=== PATIENT | male | born 1935 | race Two or more races ===

== ENCOUNTER 2016-04-20 22:19 | Inpatient (IN) | payer MEDICAID, MEDICARE ==
[~2016-04-20] VITALS: Ht 165.1 cm; Wt 64.4 kg
[~2016-04-20 22:19] MED LIST: ASPI-605 PO; GLIP10TA11 PO; LOSA50TA21 PO; MELO-264 PO
[2016-04-20] MEDS ORDERED: LEVOFLOXACIN 750 MG /D5W 150ML 150 ML IV ONE ×2 (22:30→22:43)
[2016-04-20] MEDS ORDERED: ACETAMINOPHEN 650 MG/SUPP.RECT RC ONE ×2 (22:30→22:42)
[2016-04-20] MEDS ORDERED: IV NS 0.9% 1,000 ML BAG IV ONE (22:30)
[2016-04-20 22:43] LABS: ABG HCO3 24.4 mmol/L; ABG PCO2 38.6 mmHg (35.0-45.0); ABG PH 7.419 (7.350-7.450); ABG PO2 75.4 mmHg (75.0-100.0); ABG TOTAL HEMOGLOBIN 10.2 G/dL (13.5-18.0); O2Hb 93.3 % (94.0-97.0)
[2016-04-20] MEDS ORDERED: IV SET PRIMARY PUMP SET 1 EA INFUS.SET MC ONE (22:43)
[2016-04-20] MEDS ORDERED: SECONDARY IV SET 1 EA INFUS.SET MC ONE (22:43)
[2016-04-20] MEDS ORDERED: IV SET PRIMARY 1 EA INFUS.SET MC ONE (22:43)
[2016-04-20] MEDS ORDERED: IV NS 0.9% 2,000 ML ONE (22:43)
[2016-04-20 22:51] LABS: BASOPHILS % (AUTO) 0.1 % (0.0-2.0); DIFF TOTAL % 100 %; HEMATOCRIT 30 % (39-51); HEMOGLOBIN 9.3 g/dL (13.5-17.5); LYMPHOCYTES % (AUTO) 10.4 % (20.0-44.0); MEAN CORPUSCULAR HEMOGLOBIN 31 PG (26.0-33.0); MEAN CORPUSCULAR HGB CONC 31 g/dl (31.0-36.0); MEAN CORPUSCULAR VOLUME 99 fL (80-96); MONOCYTES # (AUTO) 0.5 /CMM (0.1-1.30); MONOCYTES % (AUTO) 2.5 % (2.0-12.0); NEUTROPHILS # (AUTO) 16.7 /CMM (1.8-8.9); PLATELET COUNT (AUTO) 298 /CMM (150-450); RED BLOOD CELL COUNT(AUTO) 2.99 MIL/uL (4.5-6.0); WHITE BLOOD COUNT (AUTO) 19.1 K/uL (4.3-11.0)
[2016-04-20 23:06] LABS: TROPONIN I 0.093 ng/mL (0.00-0.056)
[2016-04-20 23:08] LABS: CALCIUM, SERUM 8.9 mg/dL (8.5-10.1); CREATININE 1.3 mg/dL (0.6-1.3); POTASSIUM 3.7 mmol/L (3.5-5.1)
[2016-04-20 23:09] LABS: LACTIC ACID 1.8 mmol/L (0.4-2.0)
[2016-04-20 23:25] LABS: INR 1.02 (0.87-1.13)
[2016-04-20 23:25] LABS: ADD UA MICROSCOPIC YES; KETONES,URINE NEGATIVE (NEGATIVE); LEUKOCYTE ESTERASE ,URINE 1+ (NEGATIVE); PH,URINE 7.5 (5.0-8.0)
[2016-04-20 23:26] LABS: ADD URINE CULTURE YES; RBC,URINE 0-2 /HPF (0-2)
[2016-04-20 23:26] LABS: ALBUMIN 2.5 g/dL (3.4-5.0); BILIRUBIN,DIRECT 0.1 mg/dL (0.0-0.2); BILIRUBIN,TOTAL 0.4 mg/dL (0.2-1.0); INDIRECT BILIRUBIN 0.3 mg/dL (0.0-1.1); TOTAL PROTEIN, SERUM 7.9 g/dL (6.4-8.2)
[2016-04-21] VITALS (41 sets, daily range): BP systolic 85–133; BP diastolic 43–82
[2016-04-21] MEDS ORDERED: VANCOMYCIN 1 GM in IV D5W 250 ML IV ONE ×2
[2016-04-21] MEDS ORDERED: PIPERACILLIN /TAZOBACTAM 3.375 G in IV D5W 50 ML IV ONE ×2
[2016-04-21] MEDS ORDERED: IV SET PRIMARY 1 EA INFUS.SET MC ONE (00:09)
[2016-04-21] MEDS ORDERED: IV NS 0.9% 1,000 ML ONE (00:09)
[2016-04-21] MEDS ORDERED: VANCOMYCIN 1 GM VIAL ONE (00:22)
[2016-04-21] MEDS ORDERED: PIPERACILLIN /TAZOBACTAM 3.375 G VIAL IV ONE ×2 (00:22→05:00)
[2016-04-21] MEDS ORDERED: IV D5W 50 ML IV ONE (00:23)
[2016-04-21] MEDS ORDERED: IV D5W 250 ML IV ONE (00:23)
[2016-04-21] MEDS ORDERED: IV SET PRIMARY PUMP SET 1 EA INFUS.SET MC ONE ×5 (00:24→19:25)
[2016-04-21] MEDS ORDERED: ASPIRIN 81 MG TAB.CHEW ONE (00:51)
[2016-04-21] MEDS ORDERED: IV D5W 1,000 ML IV PRN (00:56)
[2016-04-21] MEDS ORDERED: HYDROCODONE/APAP 5/325MG 1 EACH TABLET PO PRN (01:00)
[2016-04-21] MEDS ORDERED: ACETAMINOPHEN 325 MG TABLET PO PRN (01:00)
[2016-04-21] MEDS ORDERED: BLOOD SUGAR DIAGNOSTIC 1 EACH STRIP IN SCH (01:00)
[2016-04-21] MEDS ORDERED: Z GUARD REMEDY 2 OZ OINT TP PRN (01:00)
[2016-04-21] MEDS ORDERED: ASPIRIN 325 MG TABLET PO ONE (01:00)
[2016-04-21] MEDS ORDERED: ONDANSETRON HCL/PF 4 MG/2 ML VIAL IVP PRN (01:00)
[2016-04-21] MEDS ORDERED: LEVOFLOXACIN 500 MG /D5W 100ML 100 ML IV SCH (01:00)
[2016-04-21] MEDS ORDERED: DEXTROSE 50%-WATER 50 ML DISP.SYRIN IV PRN (01:00)
[2016-04-21] MEDS ORDERED: ZOLPIDEM TARTRATE 5 MG TABLET PO PRN (01:00)
[2016-04-21] MEDS ORDERED: INSULIN REGULAR, HUMAN 100 UNIT/ML 3 ML VIAL SQ PRN (01:00)
[2016-04-21] MEDS ORDERED: MAG HYDROX/AL HYDROX/SIMETH 30 ML UDC PO PRN (01:00)
[2016-04-21] MEDS ORDERED: MAGNESIUM HYDROXIDE 30 ML UDC PO PRN (01:00)
[2016-04-21] MEDS ORDERED: ENOXAPARIN SODIUM 40 MG/0.4 ML DISP.SYRIN SQ SCH (01:00)
[2016-04-21] MEDS ORDERED: IV D5W 1,000 ML IV ONE ×2 (02:27→23:43)
[2016-04-21] MEDS ORDERED: INSULIN REGULAR, HUMAN 100 UNIT/ML 10 ML VIAL ONE (02:28)
[2016-04-21] MEDS ORDERED: IV NS 0.9% 100 ML IV ONE (02:37)
[2016-04-21] MEDS: INSULIN REGULAR, HUMAN 100 UNIT in IV NS 0.9% 99 ML IV PRN ×6 (02:49→10:29)
[2016-04-21] MEDS ORDERED: ENOXAPARIN SODIUM 40 MG/0.4 ML DISP.SYRIN SQ ONE (02:50)
[2016-04-21] MEDS: BLOOD SUGAR DIAGNOSTIC 1 EACH STRIP IN SCH ×23 (02:51→23:56)
[2016-04-21] MEDS ORDERED: PIPERACILLIN /TAZOBACTAM 3.375 G in IV D5W 100 ML IV SCH (05:00)
[2016-04-21] MEDS ORDERED: SECONDARY IV SET 1 EA INFUS.SET MC ONE (05:01)
[2016-04-21] MEDS ORDERED: IV D5W 100 ML IV ONE (05:01)
[2016-04-21 07:24] LABS: DIFF TOTAL % 100 %; EOSINOPHILS % (AUTO) 0.1 % (0.0-6.0); HEMATOCRIT 26 % (39-51); HEMOGLOBIN 8.4 g/dL (13.5-17.5); LYMPHOCYTES # (AUTO) 1.7 /CMM (0.8-4.8); LYMPHOCYTES % (AUTO) 9.4 % (20.0-44.0); MEAN CORPUSCULAR HEMOGLOBIN 32 PG (26.0-33.0); MEAN CORPUSCULAR HGB CONC 32 g/dl (31.0-36.0); MEAN CORPUSCULAR VOLUME 99 fL (80-96); MONOCYTES # (AUTO) 0.3 /CMM (0.1-1.30); MONOCYTES % (AUTO) 1.5 % (2.0-12.0); NEUTROPHILS # (AUTO) 15.6 /CMM (1.8-8.9); PLATELET COUNT (AUTO) 227 /CMM (150-450); RED BLOOD CELL COUNT(AUTO) 2.63 MIL/uL (4.5-6.0); WHITE BLOOD COUNT (AUTO) 17.5 K/uL (4.3-11.0)
[2016-04-21 07:58] LABS: BILIRUBIN,TOTAL 0.2 mg/dL (0.2-1.0); CALCIUM, SERUM 7.7 mg/dL (8.5-10.1); CREATININE 1.2 mg/dL (0.6-1.3); PHOSPHORUS 2.3 mg/dL (2.5-4.9); TOTAL PROTEIN, SERUM 6.5 g/dL (6.4-8.2)
[2016-04-21 08:02] LABS: POTASSIUM 2.4 mmol/L (3.5-5.1)
[2016-04-21] MEDS ORDERED: IV NS 0.9% 2,000 ML ONE (08:48)
[2016-04-21] MEDS ORDERED: IV NS 0.9% 1,000 ML BAG IV PRN (09:00)
[2016-04-21] MEDS ORDERED: IV NS 0.9% 1,000 ML BAG IV ONE ×2 (09:00)
[2016-04-21] MEDS ORDERED: LOSARTAN POTASSIUM 50 MG TABLET PO SCH (09:00)
[2016-04-21] MEDS ORDERED: glipiZIDE 10 MG TABLET PO SCH (09:00)
[2016-04-21] MEDS ORDERED: HYDROGEL DRESSING 90 GM TUBE TP PRN (09:30)
[2016-04-21] MEDS ORDERED: FEE PK DOSING 1 MIN EA MC ONE (09:32)
[2016-04-21] MEDS: PANTOPRAZOLE 40 MG VIAL IV SCH (09:47)
[2016-04-21] MEDS: ASPIRIN EC 81 MG TABLET.DR PO SCH (09:47)
[2016-04-21] MEDS: HYDROGEL DRESSING 90 GM TUBE TP SCH (09:48)
[2016-04-21] MEDS: POTASSIUM CL. PREMIX PERIPHER. 50 ML IV SCH ×8 (09:48→17:38)
[2016-04-21 10:41] LABS: PLATELET ESTIMATE ADEQUATE
[2016-04-21 10:42] LABS: LYMPHOCYTES % (MANUAL) 13 % (16-48)
[2016-04-21] MEDS: PIPERACILLIN /TAZOBACTAM 3.375 G in IV D5W 50 ML IV SCH ×2 (12:15→17:41)
[2016-04-21] MEDS: VANCOMYCIN 0.75 GM in IV D5W 250 ML IV SCH ×2 (12:16→23:59)
[2016-04-21 12:41] LABS: DIFF TOTAL % 100 %; EOSINOPHILS % (AUTO) 0.2 % (0.0-6.0); HEMATOCRIT 24 % (39-51); HEMOGLOBIN 7.8 g/dL (13.5-17.5); LYMPHOCYTES # (AUTO) 1.5 /CMM (0.8-4.8); LYMPHOCYTES % (AUTO) 8.7 % (20.0-44.0); MEAN CORPUSCULAR HEMOGLOBIN 32 PG (26.0-33.0); MEAN CORPUSCULAR HGB CONC 32 g/dl (31.0-36.0); MEAN CORPUSCULAR VOLUME 98 fL (80-96); MONOCYTES # (AUTO) 0.3 /CMM (0.1-1.30); MONOCYTES % (AUTO) 1.5 % (2.0-12.0); NEUTROPHILS # (AUTO) 15.4 /CMM (1.8-8.9); NEUTROPHILS % (AUTO) 89.6 % (43.0-81.0); PLATELET COUNT (AUTO) 223 /CMM (150-450); RED BLOOD CELL COUNT(AUTO) 2.48 MIL/uL (4.5-6.0); WHITE BLOOD COUNT (AUTO) 17.2 K/uL (4.3-11.0)
[2016-04-21 12:59] LABS: BILIRUBIN,TOTAL 0.2 mg/dL (0.2-1.0); CALCIUM, SERUM 7.6 mg/dL (8.5-10.1); CREATININE 0.8 mg/dL (0.6-1.3); PHOSPHORUS 2.3 mg/dL (2.5-4.9); TOTAL PROTEIN, SERUM 6.3 g/dL (6.4-8.2)
[2016-04-21 13:13] LABS: POTASSIUM 2.8 mmol/L (3.5-5.1)
[2016-04-21] MEDS ORDERED: IV D5W 1,000 ML IV SCH (13:30)
[2016-04-21] MEDS ORDERED: IV D5/0.45 NACL 1,000 ML IV PRN (14:00)
[2016-04-21 14:26] LABS: ANISOCYTOSIS 1+; BAND % (MANUAL) 4 % (0.0-5.0); HYPOCHROMASIA 1+; LYMPHOCYTES % (MANUAL) 12 % (16-48); PLATELET ESTIMATE ADEQUATE
[2016-04-21 17:28] LABS: CALCIUM, SERUM 7.3 mg/dL (8.5-10.1); CREATININE 0.9 mg/dL (0.6-1.3); POTASSIUM 3.4 mmol/L (3.5-5.1)
[2016-04-21] MEDS: POTASSIUM PHOSPHATE MM 7.5 MMOL in IV D5W 100 ML IV SCH ×2 (17:39→19:58)
[2016-04-21] MEDS ORDERED: IV NS 0.9% 500 ML IV ONE ×2 (18:45→19:00)
[2016-04-21] MEDS ORDERED: NOREPINEPHRINE 8 MG in IV D5W 500 ML IV PRN (19:00)
[2016-04-21 20:03] LABS: KETONES,URINE NEGATIVE (NEGATIVE); LEUKOCYTE ESTERASE ,URINE 1+ (NEGATIVE)
[2016-04-21 20:12] LABS: ADD UA MICROSCOPIC YES; CREATININE, URINE 43.3 MG/DL (30.0-125.0); URINE TOTAL PROTEIN 62.3 mg/dL (0-11.9)
[2016-04-21 20:13] LABS: ALBUMIN 1.7 g/dL (3.4-5.0); BILIRUBIN,TOTAL 0.2 mg/dL (0.2-1.0); CALCIUM, SERUM 7.1 mg/dL (8.5-10.1); CREATININE 0.8 mg/dL (0.6-1.3); POTASSIUM 3.4 mmol/L (3.5-5.1); TOTAL PROTEIN, SERUM 5.5 g/dL (6.4-8.2)
[2016-04-21 20:17] LABS: ADD URINE CULTURE YES
[2016-04-21 20:19] LABS: LACTIC ACID 1.9 mmol/L (0.4-2.0)
[2016-04-21 20:23] LABS: INDIRECT BILIRUBIN 0.2 mg/dL (0.0-1.1)
[2016-04-21] MEDS ORDERED: LEVOFLOXACIN 250 MG /D5W 50 ML 250 MG in PREMIX 1 EA IV SCH (22:00)
[2016-04-21] MEDS: ENOXAPARIN SODIUM 40 MG/0.4 ML DISP.SYRIN SQ SCH (22:27)
[2016-04-21] MEDS: MEROPENEM 500 MG in IV NS 0.9% 50 ML IV SCH (22:31)
[2016-04-21] MEDS: IV D5W 1,000 ML IV PRN (23:48)
[2016-04-22] VITALS (90 sets, daily range): BP systolic 77–132; BP diastolic 36–73
[2016-04-22] MEDS ORDERED: DEXTROSE 50%-WATER 50 ML DISP.SYRIN IV PRN
[2016-04-22] MEDS: BLOOD SUGAR DIAGNOSTIC 1 EACH STRIP IN SCH ×6 (00:03→21:01)
[2016-04-22] MEDS ORDERED: INSULIN REGULAR, HUMAN 100 UNIT/ML 10 ML VIAL ONE (00:15)
[2016-04-22] MEDS: INSULIN REGULAR, HUMAN 100 UNIT/ML 3 ML VIAL SQ PRN ×6 (00:23→21:04)
[2016-04-22 01:53] LABS: CALCIUM, SERUM 7.3 mg/dL (8.5-10.1); CREATININE 0.8 mg/dL (0.6-1.3)
[2016-04-22 02:04] LABS: POTASSIUM 2.8 mmol/L (3.5-5.1)
[2016-04-22] MEDS ORDERED: IV SET PRIMARY PUMP SET 1 EA INFUS.SET MC ONE (02:54)
[2016-04-22] MEDS ORDERED: POTASSIUM CL. PREMIX PERIPHER. 200 ML ONE (02:54)
[2016-04-22] MEDS: POTASSIUM CL. PREMIX PERIPHER. 50 ML IV SCH ×9 (03:20→11:55)
[2016-04-22] MEDS: MEROPENEM 500 MG in IV NS 0.9% 50 ML IV SCH ×2 (08:08→21:02)
[2016-04-22] MEDS: PANTOPRAZOLE 40 MG VIAL IV SCH (08:09)
[2016-04-22] MEDS: ASPIRIN EC 81 MG TABLET.DR PO SCH (08:09)
[2016-04-22] MEDS: IV D5W 1,000 ML IV PRN ×2 (08:13→18:42)
[2016-04-22] MEDS: HYDROGEL DRESSING 90 GM TUBE TP SCH (08:21)
[2016-04-22] MEDS: POTASSIUM PHOSPHATE MM 5 MMOL in IV D5W 100 ML IV SCH ×2 (10:01→11:56)
[2016-04-22] MEDS: VANCOMYCIN 0.75 GM in IV D5W 250 ML IV SCH ×2 (11:58→23:56)
[2016-04-22 12:39] LABS: CALCIUM, SERUM 6.9 mg/dL (8.5-10.1); CREATININE 0.7 mg/dL (0.6-1.3); POTASSIUM 3.8 mmol/L (3.5-5.1)
[2016-04-22 12:46] LABS: CHOLESTEROL 123 mg/dL (<200); CREATINE KINASE, TOTAL 119 U/L (39-308); HDL CHOLESTEROL 18 mg/dL (40-60); LDL 48 mg/dL (0-99); TRIGLYCERIDES 392 mg/dL (30-150)
[2016-04-22 12:47] LABS: SODIUM SERUM 150 mmol/L (136-145)
[2016-04-22 12:48] LABS: CARBON DIOXIDE 22 mmol/L (21-32); CHLORIDE 117 mmol/L (98-107); POTASSIUM 3.8 mmol/L (3.5-5.1)
[2016-04-22 12:49] LABS: ANION GAP 15 (5-14); GLUCOSE 290 mg/dL (74-106); UREA NITROGEN, BLOOD 12 mg/dL (7-18)
[2016-04-22 12:50] LABS: BILIRUBIN,TOTAL 0.3 mg/dL (0.2-1.0); CREATININE 0.7 mg/dL (0.6-1.3); PHOSPHORUS 2.9 mg/dL (2.5-4.9)
[2016-04-22 12:51] LABS: ALANINE AMINOTRANSFERASE 18 U/L (12-78); ALBUMIN 1.8 g/dL (3.4-5.0); ASPARTATE AMINOTRANSFERASE 20 U/L (15-37); TOTAL PROTEIN, SERUM 5.6 g/dL (6.4-8.2)
[2016-04-22 13:13] LABS: BASOPHILS % (AUTO) 0.2 % (0.0-2.0); DIFF TOTAL % 100 %; EOSINOPHILS # (AUTO) 0.1 /CMM (0.0-0.7); EOSINOPHILS % (AUTO) 0.8 % (0.0-6.0); HEMATOCRIT 25 % (39-51); LYMPHOCYTES # (AUTO) 1.7 /CMM (0.8-4.8); LYMPHOCYTES % (AUTO) 13.3 % (20.0-44.0); MEAN CORPUSCULAR HEMOGLOBIN 31 PG (26.0-33.0); MEAN CORPUSCULAR HGB CONC 32 g/dl (31.0-36.0); MEAN CORPUSCULAR VOLUME 98 fL (80-96); MONOCYTES # (AUTO) 0.3 /CMM (0.1-1.30); MONOCYTES % (AUTO) 2.4 % (2.0-12.0); NEUTROPHILS # (AUTO) 10.8 /CMM (1.8-8.9); NEUTROPHILS % (AUTO) 83.3 % (43.0-81.0); PLATELET COUNT (AUTO) 183 /CMM (150-450); RED BLOOD CELL COUNT(AUTO) 2.54 MIL/uL (4.5-6.0); WHITE BLOOD COUNT (AUTO) 12.9 K/uL (4.3-11.0)
[2016-04-22] MEDS: Magnesium 1GM/D5W 100ML PREMIX 100 ML IV SCH ×2 (15:55→17:06)
[2016-04-22 17:30] LABS: CREATININE 0.6 mg/dL (0.6-1.3); POTASSIUM 3.3 mmol/L (3.5-5.1)
[2016-04-22] MEDS: ENOXAPARIN SODIUM 40 MG/0.4 ML DISP.SYRIN SQ SCH (21:03)
[2016-04-23] VITALS (36 sets, daily range): BP systolic 81–114; BP diastolic 42–72
[2016-04-23] MEDS: BLOOD SUGAR DIAGNOSTIC 1 EACH STRIP IN SCH ×6 (00:03→20:41)
[2016-04-23] MEDS: INSULIN REGULAR, HUMAN 100 UNIT/ML 3 ML VIAL SQ PRN ×5 (00:04→20:44)
[2016-04-23] MEDS ORDERED: POTASSIUM CL. PREMIX PERIPHER. 50 ML ONE ×4 (00:09→03:33)
[2016-04-23] MEDS: POTASSIUM CL. PREMIX PERIPHER. 50 ML IV SCH ×4 (00:20→03:37)
[2016-04-23] MEDS: IV D5W 1,000 ML IV PRN (04:32)
[2016-04-23 04:53] LABS: BASOPHILS % (AUTO) 0.2 % (0.0-2.0); DIFF TOTAL % 100 %; EOSINOPHILS # (AUTO) 0.2 /CMM (0.0-0.7); EOSINOPHILS % (AUTO) 1.5 % (0.0-6.0); HEMATOCRIT 23 % (39-51); HEMOGLOBIN 7.6 g/dL (13.5-17.5); LYMPHOCYTES # (AUTO) 1.8 /CMM (0.8-4.8); LYMPHOCYTES % (AUTO) 16.8 % (20.0-44.0); MEAN CORPUSCULAR HEMOGLOBIN 32 PG (26.0-33.0); MEAN CORPUSCULAR HGB CONC 33 g/dl (31.0-36.0); MEAN CORPUSCULAR VOLUME 95 fL (80-96); MONOCYTES # (AUTO) 0.3 /CMM (0.1-1.30); NEUTROPHILS # (AUTO) 8.2 /CMM (1.8-8.9); NEUTROPHILS % (AUTO) 78.5 % (43.0-81.0); PLATELET COUNT (AUTO) 184 /CMM (150-450); RED BLOOD CELL COUNT(AUTO) 2.39 MIL/uL (4.5-6.0); WHITE BLOOD COUNT (AUTO) 10.5 K/uL (4.3-11.0)
[2016-04-23 05:08] LABS: CALCIUM, SERUM 7.1 mg/dL (8.5-10.1); CREATININE 0.6 mg/dL (0.6-1.3); PHOSPHORUS 2.1 mg/dL (2.5-4.9); POTASSIUM 3.6 mmol/L (3.5-5.1)
[2016-04-23] MEDS: PANTOPRAZOLE 40 MG VIAL IV SCH (08:43)
[2016-04-23] MEDS: ASPIRIN EC 81 MG TABLET.DR PO SCH (08:43)
[2016-04-23] MEDS: MEROPENEM 500 MG in IV NS 0.9% 50 ML IV SCH ×2 (08:44→20:41)
[2016-04-23] MEDS: HYDROGEL DRESSING 90 GM TUBE TP SCH (08:44)
[2016-04-23] MEDS: IV NS 0.9% 1,000 ML IV PRN (10:01)
[2016-04-23] MEDS: VANCOMYCIN 0.75 GM in IV D5W 250 ML IV SCH (12:56)
[2016-04-23] MEDS: GLYTROL 1,000 ML BAG GT PRN (15:00)
[2016-04-23 15:34] LABS: PTH, INTACT 43 pg/mL (15-65)
[2016-04-23] MEDS ORDERED: Sodium Phosphate 15 MMOL in IV D5W 250 ML IV ONE (17:00)
[2016-04-23] MEDS ORDERED: NEUTRA PHOS 1 POWD.PACKET GT ONE (17:00)
[2016-04-23] MEDS: ENOXAPARIN SODIUM 40 MG/0.4 ML DISP.SYRIN SQ SCH (20:42)
[2016-04-24] VITALS (7 sets, daily range): BP systolic 85–101; BP diastolic 44–55
[2016-04-24] MEDS: BLOOD SUGAR DIAGNOSTIC 1 EACH STRIP IN SCH ×6 (01:25→20:13)
[2016-04-24] MEDS ORDERED: METOCLOPRAMIDE HCL 10 MG/2 ML VIAL ONE (02:17)
[2016-04-24] MEDS: METOCLOPRAMIDE HCL 10 MG/2 ML VIAL IV SCH ×4 (02:33→20:05)
[2016-04-24] MEDS: IV NS 0.9% 1,000 ML IV PRN ×2 (02:35→20:04)
[2016-04-24] MEDS: INSULIN REGULAR, HUMAN 100 UNIT/ML 3 ML VIAL SQ PRN ×4 (05:41→20:09)
[2016-04-24 07:05] LABS: CALCIUM, SERUM 6.9 mg/dL (8.5-10.1); CREATININE 0.5 mg/dL (0.6-1.3); PHOSPHORUS 2.8 mg/dL (2.5-4.9); POTASSIUM 3.1 mmol/L (3.5-5.1)
[2016-04-24] MEDS: ASPIRIN EC 81 MG TABLET.DR PO SCH (08:52)
[2016-04-24] MEDS: PANTOPRAZOLE 40 MG VIAL IV SCH (08:52)
[2016-04-24] MEDS: HYDROGEL DRESSING 90 GM TUBE TP SCH (08:53)
[2016-04-24] MEDS: MEROPENEM 500 MG in IV NS 0.9% 50 ML IV SCH ×2 (08:54→20:05)
[2016-04-24] MEDS ORDERED: POTASSIUM CHLORIDE 20 MEQ POWDER PACKET GT ONE (12:00)
[2016-04-24] MEDS: GLYTROL 1,000 ML BAG GT PRN (20:05)
[2016-04-24] MEDS: ENOXAPARIN SODIUM 40 MG/0.4 ML DISP.SYRIN SQ SCH (20:06)
[2016-04-25] VITALS: BP 105/62
[2016-04-25] MEDS: INSULIN REGULAR, HUMAN 100 UNIT/ML 3 ML VIAL SQ PRN ×6 (00:14→21:23)
[2016-04-25] MEDS: BLOOD SUGAR DIAGNOSTIC 1 EACH STRIP IN SCH ×6 (00:14→21:22)
[2016-04-25 04:00] VITALS: BP 119/66
[2016-04-25] MEDS: METOCLOPRAMIDE HCL 10 MG/2 ML VIAL IV SCH ×3 (05:17→21:19)
[2016-04-25 07:59] LABS: CALCIUM, SERUM 7.5 mg/dL (8.5-10.1); CREATININE 0.5 mg/dL (0.6-1.3); POTASSIUM 3.1 mmol/L (3.5-5.1)
[2016-04-25 08:00] VITALS: BP 125/70
[2016-04-25] MEDS: PANTOPRAZOLE 40 MG VIAL IV SCH (08:43)
[2016-04-25] MEDS: ASPIRIN EC 81 MG TABLET.DR PO SCH (08:43)
[2016-04-25] MEDS: MEROPENEM 500 MG in IV NS 0.9% 50 ML IV SCH ×2 (08:43→21:19)
[2016-04-25] MEDS: HYDROGEL DRESSING 90 GM TUBE TP SCH (08:44)
[2016-04-25] MEDS ORDERED: POTASSIUM CHLORIDE 20 MEQ POWDER PACKET GT SCH (11:00)
[2016-04-25 12:00] VITALS: BP 110/63
[2016-04-25 16:00] VITALS: BP 101/59
[2016-04-25 20:00] VITALS: BP 115/67
[2016-04-25] MEDS: ENOXAPARIN SODIUM 40 MG/0.4 ML DISP.SYRIN SQ SCH (21:20)
[2016-04-26] VITALS: BP 118/64
[2016-04-26] MEDS: GLYTROL 1,000 ML BAG GT PRN ×2 (00:35→17:37)
[2016-04-26] MEDS: IV NS 0.9% 1,000 ML IV PRN (00:36)
[2016-04-26] MEDS: INSULIN REGULAR, HUMAN 100 UNIT/ML 3 ML VIAL SQ PRN ×6 (00:37→20:57)
[2016-04-26] MEDS: BLOOD SUGAR DIAGNOSTIC 1 EACH STRIP IN SCH ×6 (00:38→20:50)
[2016-04-26 04:00] VITALS: BP 117/64
[2016-04-26] MEDS: METOCLOPRAMIDE HCL 10 MG/2 ML VIAL IV SCH ×3 (05:17→20:52)
[2016-04-26 07:28] LABS: BASOPHILS % (AUTO) 0.2 % (0.0-2.0); DIFF TOTAL % 100 %; EOSINOPHILS # (AUTO) 0.1 /CMM (0.0-0.7); EOSINOPHILS % (AUTO) 1.6 % (0.0-6.0); HEMATOCRIT 21 % (39-51); LYMPHOCYTES # (AUTO) 1.6 /CMM (0.8-4.8); LYMPHOCYTES % (AUTO) 20.3 % (20.0-44.0); MEAN CORPUSCULAR HEMOGLOBIN 32 PG (26.0-33.0); MEAN CORPUSCULAR HGB CONC 33 g/dl (31.0-36.0); MEAN CORPUSCULAR VOLUME 96 fL (80-96); MONOCYTES # (AUTO) 0.3 /CMM (0.1-1.30); MONOCYTES % (AUTO) 3.5 % (2.0-12.0); NEUTROPHILS # (AUTO) 5.7 /CMM (1.8-8.9); NEUTROPHILS % (AUTO) 74.4 % (43.0-81.0); PLATELET COUNT (AUTO) 236 /CMM (150-450); RED BLOOD CELL COUNT(AUTO) 2.18 MIL/uL (4.5-6.0); WHITE BLOOD COUNT (AUTO) 7.7 K/uL (4.3-11.0)
[2016-04-26 07:47] LABS: CALCIUM, SERUM 7.5 mg/dL (8.5-10.1); CREATININE 0.5 mg/dL (0.6-1.3); POTASSIUM 3.5 mmol/L (3.5-5.1)
[2016-04-26 08:00] VITALS: BP 116/64
[2016-04-26] MEDS: ASPIRIN EC 81 MG TABLET.DR PO SCH (09:00)
[2016-04-26] MEDS: MEROPENEM 500 MG in IV NS 0.9% 50 ML IV SCH ×2 (09:26→20:51)
[2016-04-26] MEDS: PANTOPRAZOLE 40 MG VIAL IV SCH (09:26)
[2016-04-26] MEDS: HYDROGEL DRESSING 90 GM TUBE TP SCH (09:27)
[2016-04-26 12:00] VITALS: BP 101/59
[2016-04-26 16:00] VITALS: BP 103/56
[2016-04-26 20:00] VITALS: BP 107/53
[2016-04-26] MEDS: ENOXAPARIN SODIUM 40 MG/0.4 ML DISP.SYRIN SQ SCH (20:56)
[2016-04-27] VITALS: BP 123/68
[2016-04-27] MEDS: BLOOD SUGAR DIAGNOSTIC 1 EACH STRIP IN SCH ×6 (01:40→21:13)
[2016-04-27] MEDS: INSULIN REGULAR, HUMAN 100 UNIT/ML 3 ML VIAL SQ PRN ×5 (01:43→21:19)
[2016-04-27] MEDS: IV NS 0.9% 1,000 ML IV PRN ×2 (01:43→22:12)
[2016-04-27 04:00] VITALS: BP 121/67
[2016-04-27] MEDS: METOCLOPRAMIDE HCL 10 MG/2 ML VIAL IV SCH ×3 (05:23→21:09)
[2016-04-27 06:36] LABS: BASOPHILS % (AUTO) 0.2 % (0.0-2.0); DIFF TOTAL % 100 %; EOSINOPHILS # (AUTO) 0.1 /CMM (0.0-0.7); EOSINOPHILS % (AUTO) 1.7 % (0.0-6.0); HEMATOCRIT 22 % (39-51); HEMOGLOBIN 7.2 g/dL (13.5-17.5); LYMPHOCYTES # (AUTO) 1.6 /CMM (0.8-4.8); LYMPHOCYTES % (AUTO) 20.3 % (20.0-44.0); MEAN CORPUSCULAR HEMOGLOBIN 32 PG (26.0-33.0); MEAN CORPUSCULAR HGB CONC 33 g/dl (31.0-36.0); MEAN CORPUSCULAR VOLUME 98 fL (80-96); MONOCYTES # (AUTO) 0.4 /CMM (0.1-1.30); MONOCYTES % (AUTO) 4.8 % (2.0-12.0); NEUTROPHILS # (AUTO) 5.9 /CMM (1.8-8.9); PLATELET COUNT (AUTO) 296 /CMM (150-450); RED BLOOD CELL COUNT(AUTO) 2.25 MIL/uL (4.5-6.0); WHITE BLOOD COUNT (AUTO) 8.1 K/uL (4.3-11.0)
[2016-04-27 06:49] LABS: CALCIUM, SERUM 7.5 mg/dL (8.5-10.1); CREATININE 0.5 mg/dL (0.6-1.3); POTASSIUM 3.4 mmol/L (3.5-5.1)
[2016-04-27 08:00] VITALS: BP 126/67
[2016-04-27] MEDS: HYDROGEL DRESSING 90 GM TUBE TP SCH (08:05)
[2016-04-27] MEDS: PANTOPRAZOLE 40 MG VIAL IV SCH (08:05)
[2016-04-27] MEDS: ASPIRIN EC 81 MG TABLET.DR PO SCH (08:05)
[2016-04-27] MEDS: PROSOURCE / PROSTAT (PYXIS) 30 ML UDC GT SCH ×2 (08:05→16:09)
[2016-04-27] MEDS: MULTIVITAMIN LIQ 5 ML UDC GT SCH (08:05)
[2016-04-27] MEDS: MEROPENEM 500 MG in IV NS 0.9% 50 ML IV SCH ×2 (08:05→21:09)
[2016-04-27] MEDS: ASCORBIC ACID 500 MG TABLET GT SCH (08:05)
[2016-04-27 08:06] LABS: PHOSPHORUS 2.4 mg/dL (2.5-4.9)
[2016-04-27] MEDS ORDERED: POTASSIUM CHLORIDE 20 MEQ POWDER PACKET GT ONE (11:00)
[2016-04-27 12:00] VITALS: BP 107/62
[2016-04-27] MEDS: GLYTROL 1,000 ML BAG GT PRN (12:24)
[2016-04-27] MEDS: Magnesium 1GM/D5W 100ML PREMIX 100 ML IV SCH ×2 (14:11→15:15)
[2016-04-27 16:00] VITALS: BP 109/65
[2016-04-27] MEDS ORDERED: NEUTRA PHOS 1 POWD.PACKET GT ONE (16:30)
[2016-04-27 20:00] VITALS: BP 140/68
[2016-04-27] MEDS: ENOXAPARIN SODIUM 40 MG/0.4 ML DISP.SYRIN SQ SCH (21:13)
[2016-04-27] MEDS ORDERED: IV SET PRIMARY PUMP SET 1 EA INFUS.SET MC ONE (21:42)
[2016-04-28] VITALS (7 sets, daily range): BP systolic 118–140; BP diastolic 62–78
[2016-04-28] MEDS: INSULIN REGULAR, HUMAN 100 UNIT/ML 3 ML VIAL SQ PRN ×4 (00:47→23:07)
[2016-04-28] MEDS: BLOOD SUGAR DIAGNOSTIC 1 EACH STRIP IN SCH ×5 (00:52→23:05)
[2016-04-28] MEDS: METOCLOPRAMIDE HCL 10 MG/2 ML VIAL IV SCH ×3 (05:19→21:19)
[2016-04-28 07:06] LABS: CALCIUM, SERUM 7.4 mg/dL (8.5-10.1); CREATININE 0.5 mg/dL (0.6-1.3); PHOSPHORUS 2.6 mg/dL (2.5-4.9); POTASSIUM 3.4 mmol/L (3.5-5.1)
[2016-04-28 07:12] LABS: BASOPHILS % (AUTO) 0.2 % (0.0-2.0); DIFF TOTAL % 100 %; EOSINOPHILS # (AUTO) 0.2 /CMM (0.0-0.7); EOSINOPHILS % (AUTO) 1.5 % (0.0-6.0); HEMATOCRIT 23 % (39-51); HEMOGLOBIN 7.6 g/dL (13.5-17.5); LYMPHOCYTES # (AUTO) 2.1 /CMM (0.8-4.8); LYMPHOCYTES % (AUTO) 20.2 % (20.0-44.0); MEAN CORPUSCULAR HEMOGLOBIN 32 PG (26.0-33.0); MEAN CORPUSCULAR HGB CONC 33 g/dl (31.0-36.0); MEAN CORPUSCULAR VOLUME 98 fL (80-96); MONOCYTES # (AUTO) 0.3 /CMM (0.1-1.30); NEUTROPHILS # (AUTO) 7.8 /CMM (1.8-8.9); NEUTROPHILS % (AUTO) 75.1 % (43.0-81.0); PLATELET COUNT (AUTO) 367 /CMM (150-450); RED BLOOD CELL COUNT(AUTO) 2.34 MIL/uL (4.5-6.0); WHITE BLOOD COUNT (AUTO) 10.4 K/uL (4.3-11.0)
[2016-04-28] MEDS: PROSOURCE / PROSTAT (PYXIS) 30 ML UDC GT SCH ×2 (08:35→17:36)
[2016-04-28] MEDS: MULTIVITAMIN LIQ 5 ML UDC GT SCH (08:35)
[2016-04-28] MEDS: ASCORBIC ACID 500 MG TABLET GT SCH (08:35)
[2016-04-28] MEDS: PANTOPRAZOLE 40 MG VIAL IV SCH (08:35)
[2016-04-28] MEDS: MEROPENEM 500 MG in IV NS 0.9% 50 ML IV SCH ×2 (08:35→21:19)
[2016-04-28] MEDS: ASPIRIN EC 81 MG TABLET.DR PO SCH (08:35)
[2016-04-28] MEDS: HYDROGEL DRESSING 90 GM TUBE TP SCH (08:36)
[2016-04-28] MEDS ORDERED: SECONDARY IV SET 1 EA INFUS.SET MC ONE (08:52)
[2016-04-28] MEDS ORDERED: POTASSIUM CHLORIDE 20 MEQ POWDER PACKET NG SCH (10:00)
[2016-04-28] MEDS ORDERED: POTASSIUM CHLORIDE 20 MEQ TAB.PRT.SR PO ONE (11:30)
[2016-04-28] MEDS ORDERED: DEXTROSE 50%-WATER 50 ML DISP.SYRIN IV PRN ×3 (11:30→18:00)
[2016-04-28] MEDS ORDERED: INSULIN REGULAR, HUMAN 100 UNIT/ML 3 ML VIAL SQ PRN (11:30)
[2016-04-28] MEDS ORDERED: POTASSIUM CHLORIDE 20 MEQ TAB.PRT.SR PO SCH (12:00)
[2016-04-28] MEDS ORDERED: BLOOD SUGAR DIAGNOSTIC 1 EACH STRIP IN SCH ×2 (12:00)
[2016-04-28] MEDS: ENOXAPARIN SODIUM 40 MG/0.4 ML DISP.SYRIN SQ SCH (21:22)
[2016-04-28] MEDS: GLYTROL 1,000 ML BAG GT PRN (21:30)
[2016-04-28] MEDS ORDERED: INSULIN DETEMIR 100 UNIT/ML CARTRIDGE SQ SCH (22:00)
[2016-04-29] VITALS (8 sets, daily range): BP systolic 99–145; BP diastolic 52–68
[2016-04-29] MEDS ORDERED: IV NS 0.9% 250 ML IV ONE (04:21)
[2016-04-29] MEDS: BLOOD SUGAR DIAGNOSTIC 1 EACH STRIP IN SCH ×3 (05:23→18:01)
[2016-04-29] MEDS: METOCLOPRAMIDE HCL 10 MG/2 ML VIAL IV SCH ×3 (05:23→22:15)
[2016-04-29] MEDS: INSULIN REGULAR, HUMAN 100 UNIT/ML 3 ML VIAL SQ PRN ×3 (05:24→17:57)
[2016-04-29 06:17] LABS: CREATININE 0.5 mg/dL (0.6-1.3); PHOSPHORUS 2.5 mg/dL (2.5-4.9)
[2016-04-29] MEDS: MULTIVITAMIN LIQ 5 ML UDC GT SCH (09:44)
[2016-04-29] MEDS: ASCORBIC ACID 500 MG TABLET GT SCH (09:44)
[2016-04-29] MEDS: PANTOPRAZOLE 40 MG VIAL IV SCH (09:44)
[2016-04-29] MEDS: PROSOURCE / PROSTAT (PYXIS) 30 ML UDC GT SCH ×2 (09:44→17:54)
[2016-04-29] MEDS: ASPIRIN EC 81 MG TABLET.DR PO SCH (09:44)
[2016-04-29] MEDS: HYDROGEL DRESSING 90 GM TUBE TP SCH (09:45)
[2016-04-29] MEDS: MEROPENEM 500 MG in IV NS 0.9% 50 ML IV SCH (09:58)
[2016-04-29] MEDS ORDERED: INSULIN DETEMIR 100 UNIT/ML CARTRIDGE SQ SCH (22:00)
[2016-04-29] MEDS: ENOXAPARIN SODIUM 40 MG/0.4 ML DISP.SYRIN SQ SCH (22:16)
[2016-04-30] MEDS: BLOOD SUGAR DIAGNOSTIC 1 EACH STRIP IN SCH ×4 (01:16→18:15)
[2016-04-30] MEDS: INSULIN REGULAR, HUMAN 100 UNIT/ML 3 ML VIAL SQ PRN ×4 (01:21→18:20)
[2016-04-30 04:00] VITALS: BP 121/72
[2016-04-30] MEDS: METOCLOPRAMIDE HCL 10 MG/2 ML VIAL IV SCH ×3 (05:00→21:29)
[2016-04-30] MEDS ORDERED: IV NS 0.9% 250 ML IV ONE (05:34)
[2016-04-30 07:24] LABS: CALCIUM, SERUM 8.2 mg/dL (8.5-10.1); CREATININE 0.6 mg/dL (0.6-1.3); POTASSIUM 4.1 mmol/L (3.5-5.1)
[2016-04-30 08:00] VITALS: BP 132/78
[2016-04-30] MEDS: MULTIVITAMIN LIQ 5 ML UDC GT SCH (09:42)
[2016-04-30] MEDS: ASCORBIC ACID 500 MG TABLET GT SCH (09:42)
[2016-04-30] MEDS: ASPIRIN EC 81 MG TABLET.DR PO SCH (09:42)
[2016-04-30] MEDS: PANTOPRAZOLE 40 MG VIAL IV SCH (09:42)
[2016-04-30] MEDS: PROSOURCE / PROSTAT (PYXIS) 30 ML UDC GT SCH ×2 (09:42→18:13)
[2016-04-30] MEDS: HYDROGEL DRESSING 90 GM TUBE TP SCH (09:45)
[2016-04-30] MEDS ORDERED: INSU100I19 SQ (13:47)
[2016-04-30] MEDS ORDERED: Blood Sugar Diagnostic IN (13:47)
[2016-04-30] MEDS ORDERED: ASCO500T9 GT (13:47)
[2016-04-30] MEDS ORDERED: Multivitamins GT (13:47)
[2016-04-30 20:00] VITALS: BP 97/69
[2016-04-30 20:23] VITALS: BP 97/69
[2016-04-30] MEDS: ENOXAPARIN SODIUM 40 MG/0.4 ML DISP.SYRIN SQ SCH (21:12)
[2016-04-30] MEDS ORDERED: INSULIN DETEMIR 100 UNIT/ML CARTRIDGE SQ SCH (22:00)
[2016-05-01] MEDS: BLOOD SUGAR DIAGNOSTIC 1 EACH STRIP IN SCH ×3 (00:02→12:11)
[2016-05-01] MEDS: GLYTROL 1,000 ML BAG GT PRN (00:02)
[2016-05-01] MEDS: INSULIN REGULAR, HUMAN 100 UNIT/ML 3 ML VIAL SQ PRN ×3 (00:06→13:40)
[2016-05-01 04:00] VITALS: BP 102/66
[2016-05-01 04:41] VITALS: BP 102/66
[2016-05-01] MEDS: METOCLOPRAMIDE HCL 10 MG/2 ML VIAL IV SCH ×2 (05:39→13:39)
[2016-05-01 07:40] LABS: CREATININE 0.5 mg/dL (0.6-1.3); POTASSIUM 3.9 mmol/L (3.5-5.1)
[2016-05-01] MEDS: ASPIRIN EC 81 MG TABLET.DR PO SCH (08:48)
[2016-05-01] MEDS: MULTIVITAMIN LIQ 5 ML UDC GT SCH (08:48)
[2016-05-01] MEDS: PROSOURCE / PROSTAT (PYXIS) 30 ML UDC GT SCH (08:48)
[2016-05-01] MEDS: ASCORBIC ACID 500 MG TABLET GT SCH (08:48)
[2016-05-01] MEDS: PANTOPRAZOLE 40 MG VIAL IV SCH (08:48)
[2016-05-01 08:54] VITALS: BP 114/73
[2016-05-01] MEDS: HYDROGEL DRESSING 90 GM TUBE TP SCH (08:54)
[2016-05-01 12:00] VITALS: BP 111/74
== END 2016-05-01 15:27 | DRG 720 ==
LOC: ER 22:23 → ICU 04-21 00:38 → TELE-TD 04-21 00:51 → ICU 04-21 01:30 → TELE-TD 04-24 01:58 → TELE1 04-25 12:02 → MEDSG1 04-27 16:27
PROVIDERS: ADMIT Family Medicine; ATTEND Family Medicine
DX: A41.9 Sepsis, unspecified organism (principal); I21.4 Non-ST elevation (NSTEMI) myocardial infarction; N17.0 Acute kidney failure with tubular necrosis; J96.21 Acute and chronic respiratory failure with hypoxia; R65.21 Severe sepsis with septic shock; J69.0 Pneumonitis due to inhalation of food and vomit; G93.40 Encephalopathy, unspecified; E43 Unspecified severe protein-calorie malnutrition; L89.154 Pressure ulcer of sacral region, stage 4; E11.00 Type 2 diabetes mellitus with hyperosmolarity without nonketotic hyperglycemic-hyperosmolar coma (NKHHC); R53.2 Functional quadriplegia; E87.0 Hyperosmolality and hypernatremia; E11.65 Type 2 diabetes mellitus with hyperglycemia; Z93.0 Tracheostomy status; Z93.1 Gastrostomy status; Z66 Do not resuscitate; E86.0 Dehydration; E87.6 Hypokalemia; Z87.820 Personal history of traumatic brain injury; N39.0 Urinary tract infection, site not specified; R13.10 Dysphagia, unspecified; D63.8 Anemia in other chronic diseases classified elsewhere; Z68.23 Body mass index [BMI] 23.0-23.9, adult; E11.621 Type 2 diabetes mellitus with foot ulcer; L97.529 Non-pressure chronic ulcer of other part of left foot with unspecified severity; S81.801A Unspecified open wound, right lower leg, initial encounter; X58.XXXA Exposure to other specified factors, initial encounter; Y93.9 Activity, unspecified; Y92.89 Other specified places as the place of occurrence of the external cause; Y99.9 Unspecified external cause status; L53.9 Erythematous condition, unspecified; B96.4 Proteus (mirabilis) (morganii) as the cause of diseases classified elsewhere; S81.002A Unspecified open wound, left knee, initial encounter; S81.001A Unspecified open wound, right knee, initial encounter; L89.610 Pressure ulcer of right heel, unstageable
CPT/HCPCS: 31720; 36415; 36569; 36600; 71010-TC; 80048-TC; 80053-TC; 80061-TC; 80076-TC; 80202-TC; 81000-TC; 82550-TC; 82570-TC; 82962-TC; 83605-TC; 83735-TC; 83935-TC; 83970; 84100-TC; 84132-TC; 84155; 84155-TC; 84165; 84300-TC; 84484-TC; 85025-TC; 85730-TC; 86850-TC; 86901; 86921-TC; 87040-TC; 87070-TC; 87081-TC; 87086-TC; 87186-TC; 94640-TC; 94664-TC; 94760-TC; 99082-TC; A4216; A4606; A6248; A6253; A6402; A6403; A6407; C1751; C9113; J1650; J1815; J1956; J2185; J2543; J2765; J3370; J3475; J3480; J3490; J7030; J7040; J7050; J7060; J7070; Z7610